=== PATIENT | female | born 1965 | race Two or more races ===

== ENCOUNTER 2016-06-03 04:19 | Emergency (ER) | payer BC, OTHER ==
[2016-06-03] MEDS ORDERED: KETOROLAC TROMETHAMINE 60 MG/2 ML VIAL ONE (04:49)
[2016-06-03] MEDS ORDERED: METOCLOPRAMIDE HCL 5 MG/ML 2ML VIAL ONE (04:49)
[2016-06-03] MEDS ORDERED: DIPHENHYDRAMINE HCL 50 MG/1 ML VIAL ONE (04:52)
== END 2016-06-03 05:58 | disposition home or self-care (01) ==
LOC: ED 04:19
DX: R10.9 Unspecified abdominal pain (principal); R11.2 Nausea with vomiting, unspecified
CPT/HCPCS: 99282; 96372 ×3; 99283; J1200; J2765; J1885